=== PATIENT | male | born 1985 | race Caucasian/White ===

== ENCOUNTER 2017-02-01 18:42 | Emergency (ER) | payer OTHER ==
[~2017-02-01] VITALS: Ht 182.9 cm; Wt 77.3 kg
[2017-02-01 18:58] VITALS: BP 148/86; PULSE 95; RESP 20; O2SAT 99
[2017-02-01 19:43] LABS: BASOPHILS % (AUTO) 0.1 % (0-3); EOSINOPHILS % (AUTO) 0 % (0-5); MONOCYTES % (AUTO) 2.4 % (4-12); Mean Corpuscular Hemoglobin 29.8 pg (27.0-35.0); Mean Corpuscular Volume 85.8 fL (81-100); NEUTROPHILS % (AUTO) 92.6 % (40-74); Platelet Count 294 bil/L (150-400)
--- NOTE | 2017-02-01 19:44 | ED.REPORT ---
HPI-Abd Pain M Under 40 Date of Service February 01, 2017 ED Provider: Dr. Les Baumann D.O. A healthy 31 year old male presents to the ED with RLQ abdominal pain onset yesterday. Associated symptoms include nausea, vomiting, and diarrhea. The patient denies fever or other symptoms. He also denies recent known chemical or toxin exposure. Nursing Notes Stated Complaint: VOMITING Chief Complaint: Male Abdominal Pain Nursing Notes Reviewed: Yes Allergies: Coded Allergies: No Known Allergies (Unverified , 02/01/17) General Time Seen by MD: 19:44 Chief Complaint Abdominal pain Hx Obtained From: Patient Arrived By: Walk-in Sudden in Onset?: Yes Onset Occurred: Yesterday Symptom Duration: Since onset Location: : RLQ Quality: Painful Severity: Current: Moderate Severity: Maximum: Moderate Associated with: Reports: Diarrhea, Nausea Pertinent Negative: Relieved by nothing Recent Healthcare: No recent doctor visit Past Medical History Past Medical History None reported Past Surgical History None reported Smoking History Unknown if Ever Smoker Social History Other Social History: Good social support Occupation Works for [email or web address] Ambulatory Status Independent Review of Systems Constitutional: Denies: Fever Respiratory: Denies: Non-productive cough, Shortness of breath GI: Reports: Abdominal pain (RLQ), Diarrhea, Nausea, Vomiting Complete sys rev & neg: except as marked. Physical Exam Initial Vital Signs Vital Signs (First) Date Time Temp Pulse Resp B/P Pulse Ox O2 Delivery O2 Flow Rate FiO2 02/01/17 18:58 37 95 20 148/86 99 Room Air Initial VS: Reviewed Neck: Supple, Full range of motion Skin: Warm, Dry, No cyanosis Neurologic: Alert, Oriented, Nonfocal Psychiatric: Mood/affect normal, Behavior normal, Normal thought content General/Constitutional: Awake, Alert Distress / Hydration: Positive: Distress moderate Appearance / Presentation: Positive: Uncomfortable Respiratory / Chest: Breath sounds NL, Breath sounds = bilat, No respiratory distress Cardiovascular: Regular rhythm, Heart sounds NL Heart Rate / Rhythm: Positive: Tachycardia Abdomen: Atraumatic, Soft Tenderness/Guarding/Rebound: Positive: Tender RLQ... Head / Eyes: Atraumatic, Normocephalic ENT: Airway patent Mouth: Positive: Mucous membranes dry Interpretation & Diagnostics URINE DIPSTICK: 1.020 sp gravity 5 pH Trace Protein Normal Glucose +++Large Ketones 1mg/dl Urobilinogen + Bilirubin Otherwise Negative Lab Results Interpretation Result Diagram: 02/01/17192402/01/171924 Test 02/01/17 19:25 02/01/17 22:55 White Blood Count 13.7th/mm3 (3.8-10.1) Red Blood Count 5.43mil/mm3 (4.40-5.80) Hemoglobin 16.2g/dL (13.8-17.2) Hematocrit 46.6% (41.0-50.0) Mean Corpuscular Volume 85.8fL (81-100) Mean Corpuscular Hemoglobin 29.8pg (27.0-35.0) Mean Corpuscular Hemoglobin Concent 34.8% (32.0-37.0) Red Cell Distribution Width 12.9% (12.3-15.4) Platelet Count 294bil/L (150-400) Neutrophils (%) (Auto) 92.6% (40-74) Lymphocytes (%) (Auto) 4.6% (14-46) Monocytes (%) (Auto) 2.4% (4-12) Eosinophils (%) (Auto) 0% (0-5) Basophils (%) (Auto) 0.1% (0-3) Sodium Level 143mEq/L (134-144) Potassium Level 4.1mEq/L (3.5-5.2) Chloride Level 100mEq/L (97-108) Carbon Dioxide Level 21mmol/L (18-29) Blood Urea Nitrogen 16mg/dL (6-20) Creatinine 0.94mg/dL (0.76-1.27) Estimat Glomerular Filtration Rate 99mL/min (>59) Glucose Level 141mg/dL (60-99) Calcium Level 10.2mg/dL (8.5-10.1) Magnesium Level 2.1mg/dL (1.6-2.6) Total Bilirubin 0.8mg/dL (0.0-1.2) Aspartate Amino Transf (AST/SGOT) 24U/L (0-50) Alanine Aminotransferase (ALT/SGPT) 26U/L (0-44) Alkaline Phosphatase 66U/L (25-150) Total Protein 8.2g/dL (6.4-8.4) Albumin 5.2g/dL (3.4-5.0) Lipase 26U/L (13-60) Urine Color Dark yellow (YELLOW) Urine Appearance Clear (CLEAR,HAZY) Urine pH 6.0 (5.0-8.0) Urine Specific [place] 1.036 (1.003-1.035) Urine Protein 30mg/dL (NEG,TRACE) Urine Glucose (UA) Negativemg/dL (NEGATIVE) Urine Ketones >80mg/dL (NEGATIVE) Urine Occult Blood Negative (NEGATIVE) Urine Nitrite Negative (NEGATIVE) Urine Bilirubin Small (NEGATIVE) Urine Ictotest Positive (Negative) Urine Urobilinogen Normalmg/dL (NORMAL) Urine Leukocyte Esterase Negative (NEGATIVE) Urine RBC 0-2/hpf (0-2) Urine WBC 0-5/hpf (0-5) Urine Epithelial Cells Occasional/hpf (NONE-MOD) Urine Crystals None seen (NONE SEEN) Urine Bacteria None/hpf (NONE-FEW) Urine Hyaline Casts None/lpf (NONE) Urine Granular Casts None seen (NONE SEEN) Urine Waxy Casts None seen (NONE SEEN) Urine Red Blood Cell Casts None seen (NONE SEEN) Urine White Blood Cell Casts None seen (NONE SEEN) Urine Mucus Present (None Seen) Urine Trichomonas None seen (NONE SEEN) Urine Yeast None (NONE SEEN) Urine Culture Reflexed Not indicated CT Abd / Pelvis Interpretation IMPRESSION: Normal abdominal pelvic CT. Transmitted to ED by James Blankenship M.D. at 02/01/2017 - 10:53:56 PM PDT Study type: Abdominal CT IV contrast, Abdom CT oral contrast Interpretation / Wet Read by: Interpret - Radiologist Re-Eval/Medical Decision Re-Evaluation/Progress #1: Time of Eval: 21:25 Patient Status: Condition improved Re-Evaluation/Progress Note: Discussed with patient lab results and plan for CT. Re-Evaluation/Progress #2: Time of Eval: 00:55 Patient Status: Condition improved Re-Evaluation/Progress Note: Discussed with patient CT and lab results, diagnosis, and plan for discharge. Follow-up and return to the ER instructions given. Patient agrees with plan for care and all questions were addressed. Counseled Regarding: Diagnosis, Lab results, Need for follow-up, When/why to return to ED Patient Discharge & Departure Primary Impression: Right lower quadrant abdominal pain Additional Impressions: Vomiting Vomiting type: unspecified Vomiting Intractability: non-intractable Nausea presence: with nausea Qualified Code: R11.2 - Nausea with vomiting, unspecified Diarrhea Diarrhea type: presumed infectious Qualified Code: A09 - Infectious gastroenteritis and colitis, unspecified Dehydration Disposition: Home Discharge Condition All VS Reviewed: Yes Condition: Improved Patient Instructions: Acute Abdominal Pain (ED), Gastroenteritis (ED) Additional Instructions: The CT scan identified a normal appendix. Clear liquid diet for the next [address] as you have received sedating medications. Do not consume alcohol tonight as you have received sedating medications. You may take 1-2 [place] every 6 hours as needed for the abdominal cramping. Do not drive or drink alcohol or consume acetaminophen while taking the [place]. Take 1 Zofran every 8 hours as needed for nausea. I would like you to follow-up with your primary care physician for next week. If the diarrhea persists or if you develop bloody diarrhea you will need to have stool studies performed. Do not hesitate to return if any problems or new worsening symptoms. Referrals: KAI WOODWARD/BRENNAN (PCP) Tanesha Attestation Portions of this note were transcribed by Meera Recinos. I, Dr. Baumann, personally performed the history, physical exam, and medical decision-making; I reviewed and confirmed the accuracy of the information in the transcribed note. Signed by: Tanesha Lieberman, 02/02/2017, 01:30 copies to: KAI WOODWARD/Les Roque DO February 01, 2017 19:44 MEERA RECINOS February 01, 2017 19:58
[2017-02-01 20:08] LABS: Magnesium 2.1 mg/dL (1.6-2.6)
[2017-02-01] MEDS: Ondansetron 2 mg/mL 2 mL Inj IVPUSH PRN ×4 (20:18→22:44)
[2017-02-01] MEDS: 0.9% Sodium Chloride 1,000 ML IV SCH ×3 (20:18→23:03)
[2017-02-01] MEDS: HYDROmorphone 0.5 mg/0.5 mL iSecure Syringe IVPUSH PRN ×3 (20:36→23:18)
[2017-02-01] MEDS ORDERED: Iohexol 300 mg/mL 30 mL Inj PO ONE (21:20)
[2017-02-01 23:00] VITALS: BP 129/86; PULSE 90; RESP 20; O2SAT 99
[2017-02-01 23:26] LABS: APPEARANCE,URINE CLEAR (CLEAR,HAZY); COLOR,URINE DARK YELLOW (YELLOW)
[2017-02-01 23:27] LABS: ICTOTEST,URINE POSITIVE (Negative); OCCULT BLOOD,URINE NEGATIVE (NEGATIVE); UROBILINOGEN,URINE NORMAL (NORMAL)
[2017-02-01] MEDS ORDERED: _HYDROcodone/APAP 5-325 mg Tablet PO PRN (23:55)
[2017-02-01] MEDS ORDERED: _Ondansetron ODT 4 mg Tablet PO PRN (23:55)
[2017-02-02] MEDS: 0.9% Sodium Chloride 1,000 ML IV SCH (00:34)
[2017-02-02 01:50] VITALS: BP 129/86; PULSE 90; RESP 20; O2SAT 99
--- NOTE | 2017-02-02 07:45 | DRSVH ---
PROCEDURE: CT ABDOMEN AND PELVIS WITH CONTRAST ([id number]) INDICATIONS: rlq pain, 13 wbc count, TECHNIQUE: After the administration of oral and intravenous contrast, 5 mm thick sections acquired from the diap hragms to the symphysis. 5 mm thick coronal and sagittal reformats were performed. For radiation do se reduction, the following was used: automated exposure control, adjustment of mA and/or kV accordi ng to patient size. COMPARISON: None. FINDINGS: Image quality: Excellent. ABDOMEN: Lung bases: Lung bases are clear. Heart size is normal. Solid organs: Liver and spleen are normal in size and enhancement. Gallbladder is within normal carmen its. Biliary system is non-dilated. Pancreas enhances normally. No adrenal nodules. Kidneys are n ormal in size and enhancement, without hydronephrosis. Peritoneum and bowel: Small hiatal hernia. Stomach, small bowel, and colon loops are normal in calib er and wall thickness. No free fluid or air. Normal appendix. Nodes and vessels: No retroperitoneal or mesenteric adenopathy. Aorta and inferior vena cava are no rmal in caliber. Miscellaneous: No ventral hernias. PELVIS: Genitourinary: Urinary bladder is decompressed. Visualized ureters are nondistended. Miscellaneous: No inguinal hernias or adenopathy. Bones: No suspicious bony lesions. No vertebral body compression fractures. IMPRESSION: 1. No acute process. 2. Normal appendix. 3. Concordant with preliminary interpretation. Dictated by: Sun Hillman M.D. on 02/02/2017 at 7:42 Approved by: Sun Hillman M.D. on 02/02/2017 at 7:44
[2017-02-03] MEDS ORDERED: HYDR-4003 PO (08:08)
[2017-02-03] MEDS ORDERED: ONDA4TAB9 PO (08:08)
== END 2017-02-02 01:51 | disposition home or self-care (01) ==
LOC: SED 18:42
DX: R10.31 Right lower quadrant pain (principal); R11.2 Nausea with vomiting, unspecified; A09 Infectious gastroenteritis and colitis, unspecified; E86.0 Dehydration
CPT/HCPCS: 36415; 74177; 80053; 81000; 83690; 83735; 85025; 96361; 96374; 96375; 96376; 99285; J1170; J2405; J7030; Q9967

== ENCOUNTER 2017-02-03 07:25 | Emergency (ER) | payer OTHER ==
[~2017-02-03] VITALS: Ht 182.9 cm; Wt 77.7 kg
[2017-02-03 07:29] VITALS: BP 133/84; PULSE 86; RESP 18; O2SAT 100
--- NOTE | 2017-02-03 07:34 | ED.REPORT ---
HPI-Abd Pain M Under 40 Date of Service February 03, 2017 ED Provider: Pankaj Torrez DO 31 year old male presents to the ER complaining of four days of abdominal pain, diarrhea, nausea and vomiting. Patient was seen here in the department three days ago for similar and is requesting a recheck and refill for Zofran. Associated symptoms include diarrhea, though prior to last night he states he had not moved his bowels for three days. Symptoms awakened patient from sleeping last night, at which time he had an episode of watery, mucousy diarrhea. Patient denies hematemesis, and hematochezia. Nursing Notes Stated Complaint: ABDOMINAL PAIN Chief Complaint: Male Abdominal Pain Nursing Notes Reviewed: Yes Allergies: Coded Allergies: No Known Allergies (Unverified , 02/01/17) Scheduled PRN Hydrocodone-Acetaminophen 5-325 mg (Hydrocodone-Acetaminophen 5-325 mg) 1 Each Tablet 1 TABLET PO QID PRN PRN For Pain Ondansetron ODT (Zofran ODT) 4 Mg Tablet 4 MG PO Q4H PRN PRN For Nausea General Time Seen by MD: 07:34 Chief Complaint Abdominal pain, Vomiting moderate Hx Obtained From: Patient Arrived By: Walk-in Sudden in Onset?: No Onset Occurred: 4 days ago Symptom Duration: Since onset Location: : Abdomen lower Quality: Painful Severity: Current: Moderate Severity: Maximum: Moderate Associated with: Reports: Diarrhea, Vomiting, Denies: Hematemesis, Hematochezia Pertinent Negative: Pt denies other symptoms Recent Healthcare: Recent doctor visit Similar Sx Previous: No Past Medical History Past Medical History None reported Past Surgical History None reported Smoking History Unknown if Ever Smoker Social History Other Social History: Good social support Occupation Works for [employer] Ambulatory Status Independent Review of Systems Constitutional: Denies: Chills, Fever GI: Reports: Abdominal pain, Diarrhea, Mucousy stool, Nausea, Vomiting, Denies: Bloody/tarry stool, Hematemesis, Hematochezia Complete sys rev & neg: except as marked. Physical Exam Initial Vital Signs Vital Signs (First) Date Time Temp Pulse Resp B/P Pulse Ox O2 Delivery O2 Flow Rate FiO2 02/03/17 07:29 36.2 86 18 133/84 100 Initial VS: Reviewed Head / Eyes: Atraumatic, Normocephalic Neck: Supple, Non-tender, Full range of motion Extremities: Vascular intact, Neuro intact, No swelling, No tenderness Skin: Warm, Dry, No cyanosis Neurologic: Alert, Oriented, Nonfocal General/Constitutional: Awake, Alert, Well developed, Well nourished Respiratory / Chest: Breath sounds NL, Breath sounds = bilat, No respiratory distress, No rales, No rhonchi, No wheezing, No stridor Cardiovascular: Heart rate NL, Regular rhythm, Heart sounds NL, Peripheral circulation NL Abdomen: Soft, Non-tender, McBurney's non-tender, No guarding, No rebound, No distention Tenderness/Guarding/Rebound: Negative: Tender RLQ... Back: Inspection NL, Non-tender, No CVA tenderness Re-Eval/Medical Decision Med Decision/Clinical Course Reassuring exam, workup was reviewed from a few days ago overall patient's symptoms reportedly are improving. I did suggested outpatient stool testing due to the mucousy nature of the stool. And Zofran and Vicodin prescribed. Return and follow-up precautions given. Re-Evaluation/Progress : Time of Eval: 07:43 Re-Evaluation/Progress Note: Discussed physical examination findings and plan to discharge. Patient is amenable to the plan. Return precautions given. All other questions addressed. Counseled Regarding: Diagnosis, Need for follow-up, When/why to return to ED Patient Discharge & Departure Primary Impression: Diarrhea Disposition: Home Discharge Condition All VS Reviewed: Yes Condition: Stable Additional Instructions: Continue Zofran and Vicodin. Return a stool specimen as soon as possible to be tested for the cause of your mucous-like diarrhea. Return to the ER if worse. Follow-up with the primary care doctor as well. Referrals: KAI WOODWARD/BRENNAN (PCP) Tanesha Attestation Portions of this note were transcribed by Cy Ortiz. I, Dr. Torrez, personally performed the history, physical exam and medical decision-making; I reviewed and confirmed the accuracy of the information in the transcribed note. Signed by: Tanesha Siddiqui, 02/03/2017 and 08:12 copies to: RUBY WOODWARD Timothy S DO February 03, 2017 07:34 CY ORTIZ February 03, 2017 07:41
[2017-02-03] MEDS ORDERED: ONDA4TAB9 PO (08:08)
[2017-02-03] MEDS ORDERED: HYDR-4003 PO (08:08)
== END 2017-02-03 08:34 | disposition home or self-care (01) ==
LOC: SED 07:25
DX: R19.7 Diarrhea, unspecified (principal)

== ENCOUNTER 2017-02-09 16:23 | Emergency (ER) | payer OTHER ==
[~2017-02-09] VITALS: Ht 182.9 cm; Wt 77.3 kg
[~2017-02-09 16:23] MED LIST: HYDR-4003 PO; ONDA4TAB9 PO
[2017-02-09 16:33] VITALS: BP 131/94; PULSE 127; RESP 20; O2SAT 100
[2017-02-09 17:19] LABS: BASOPHILS % (AUTO) 0.3 % (0-3); EOSINOPHILS % (AUTO) 0.1 % (0-5); MONOCYTES % (AUTO) 7.3 % (4-12); Mean Corpuscular Hemoglobin 29.5 pg (27.0-35.0); Mean Corpuscular Volume 84.6 fL (81-100); NEUTROPHILS % (AUTO) 82.4 % (40-74); Platelet Count 354 bil/L (150-400)
[2017-02-09] MEDS ORDERED: 0.9% Sodium Chloride 1,000 ML IV ONE ×3 (17:20→20:30)
[2017-02-09] MEDS: Ondansetron 2 mg/mL 2 mL Inj IVPUSH PRN ×3 (17:29→20:01)
--- NOTE | 2017-02-09 17:36 | ED.REPORT ---
HPI-Abd Pain M Under 40 Date of Service February 09, 2017 ED Provider: Surekha Younger MD The patient is a 31 year old male who returns to the emergency department for the 3rd time in the last 10 days. He was initially seen on February 01 for RLQ abdominal pain. He had a normal abdominal CT and was discharged home on Vicodin and Zofran. The patient was seen again on February 03 for continued abdominal pain, nausea, vomiting, and diarrhea. He was discharged home and directed to bring a stool sample to the lab. He returns today complaining of continued lower abdominal pain, epigastric pain, nausea, vomiting, and diarrhea. His pain has been constant since onset. He also reports dull pain in his testicles, bloody stools, chills, and decreased appetite. He denies dysuria, hematuria, increased urination frequency/urgency, fever, penile discharge or penile pain. The patient is sexually active with 1 partner. He reports history of "stomach issues" since he was a kid. He has been diagnosed with cyclical vomiting syndrome. He does not take any medication regularly. He drinks alcohol and smokes tobacco occasionally. He denies illicit drug use. Nursing Notes Stated Complaint: STOMACH PAIN,VOMITING Chief Complaint: Male Abdominal Pain Nursing Notes Reviewed: Yes Allergies: Coded Allergies: No Known Allergies (Unverified , 02/01/17) Scheduled Doxycycline Monohyd (Doxycycline Monohyd) 100 Mg Tablet 100 MG PO BID Scheduled PRN Hydrocodone-Acetaminophen 5-325 mg (Hydrocodone-Acetaminophen 5-325 mg) 1 Each Tablet 1 TABLET PO QID PRN PRN For Pain Hydrocodone-Acetaminophen 5-325 mg (Hydrocodone-Acetaminophen 5-325 mg) 1 Each Tablet 1 TABLET PO Q6H PRN PRN For Pain Ondansetron ODT (Zofran ODT) 4 Mg Tablet 4 MG PO Q4H PRN PRN For Nausea Ondansetron ODT (Ondansetron ODT) 8 Mg Tab.rapdis 8 MG PO Q8H PRN PRN For Nausea General Time Seen by MD: 17:18 Chief Complaint Abdominal pain Hx Obtained From: Patient Arrived By: Walk-in Sudden in Onset?: No Onset Occurred: More than a week ago... Symptom Duration: Since onset Progression since Onset: Constant, Gradually worsening Location: : Abdomen lower: Epigastric Quality: Painful Severity: Current: Moderate Severity: Maximum: Severe Recent Healthcare: No recent hospitalization, Recent doctor visit, Prior workup Similar Sx Previous: Yes Past Medical History Past Medical History Cyclical vomiting Past Surgical History None reported Family History Noncontributory Smoking History Current Some Day Smoker Social History Alcohol Use: "Social" Drug Use: Denies drug use Other Social History: Good social support, Lives with children, Local resident Occupation Works for [employer] Ambulatory Status Independent Review of Systems Review of Systems Note: +decreased appetite Constitutional: Reports: Chills, Denies: Fever Respiratory: Denies: Non-productive cough, Shortness of breath Cardiovascular: Denies: Chest pain GI: Reports: Abdominal pain, Diarrhea, Hematochezia, Nausea, Vomiting Male: Reports Testicular pain, Denies Dysuria, Denies Hematuria, Denies Penile discharge, Denies Penile lesion, Denies Testicular swelling, Denies Urinary frequency, Denies Urinary urgency Complete sys rev & neg: except as marked. Physical Exam Initial Vital Signs Vital Signs (First) Date Time Temp Pulse Resp B/P Pulse Ox O2 Delivery O2 Flow Rate FiO2 02/09/17 16:33 36.6 127 20 131/94 100 02/09/17 21:19 Room Air Initial VS: Reviewed, Vital signs abnormal Head / Eyes: Atraumatic, Normocephalic, PERRL Neck: Supple, Non-tender, Full range of motion Extremities: Vascular intact, Neuro intact, No swelling, No tenderness Skin: Warm, Dry, No cyanosis Neurologic: Alert, Oriented, Nonfocal Psychiatric: Mood/affect normal, Behavior normal, Normal thought content Cardiovascular: Regular rhythm, Heart sounds NL, No gallop, No murmurs, No rubs Heart Rate / Rhythm: Positive: Tachycardia Abdomen: Soft Mild lower abdominal discomfort. Groin normal. Back: Inspection NL, Non-tender, No CVA tenderness ENT: Airway patent Mouth: Positive: Mucous membranes dry Male Genitourinary: Atraumatic, Inspection NL, Penis NL, No penile discharge, Testes NL, No mass, No hernia, No lesions or rash Rectum / Perineum: Blood - occult heme - Enlarged prostate that was boggy and painful. Interpretation & Diagnostics Lab Results Interpretation Result Diagram: 02/09/17 1700 02/09/17 1725 Test 02/09/17 17:00 02/09/17 17:25 02/09/17 20:31 White Blood Count 13.9th/mm3 (3.8-10.1) Red Blood Count 6.10mil/mm3 (4.40-5.80) Hemoglobin 18.0g/dL (13.8-17.2) Hematocrit 51.6% (41.0-50.0) Mean Corpuscular Volume 84.6fL (81-100) Mean Corpuscular Hemoglobin 29.5pg (27.0-35.0) Mean Corpuscular Hemoglobin Concent 34.9% (32.0-37.0) Red Cell Distribution Width 12.9% (12.3-15.4) Platelet Count 354bil/L (150-400) Neutrophils (%) (Auto) 82.4% (40-74) Lymphocytes (%) (Auto) 9.8% (14-46) Monocytes (%) (Auto) 7.3% (4-12) Eosinophils (%) (Auto) 0.1% (0-5) Basophils (%) (Auto) 0.3% (0-3) Hold Purple Top Tube Received (Received) Hold Blue Top Tube Received (Received) Sodium Level 140mEq/L (134-144) Potassium Level 4.7mEq/L (3.5-5.2) Chloride Level 97mEq/L (97-108) Carbon Dioxide Level 21mmol/L (18-29) Blood Urea Nitrogen 18mg/dL (6-20) Creatinine 1.32mg/dL (0.76-1.27) Estimat Glomerular Filtration Rate 67mL/min (>59) Glucose Level 141mg/dL (60-99) Calcium Level 11.1mg/dL (8.5-10.1) Magnesium Level 2.4mg/dL (1.6-2.6) Total Bilirubin 0.7mg/dL (0.0-1.2) Aspartate Amino Transf (AST/SGOT) 19U/L (0-50) Alanine Aminotransferase (ALT/SGPT) 17U/L (0-44) Alkaline Phosphatase 75U/L (25-150) Total Protein 9.2g/dL (6.4-8.4) Albumin 5.8g/dL (3.4-5.0) Lipase 29U/L (13-60) Hold Red Top Tube Received (Received) Hold Man Top Tube Received (Received) Urine Color Yellow (YELLOW) Urine Appearance Clear (CLEAR,HAZY) Urine pH 5.5 (5.0-8.0) Urine Specific [employer] 1.030 (1.003-1.035) Urine Protein 30mg/dL (NEG,TRACE) Urine Glucose (UA) Negativemg/dL (NEGATIVE) Urine Ketones 15mg/dL (NEGATIVE) Urine Occult Blood Negative (NEGATIVE) Urine Nitrite Negative (NEGATIVE) Urine Bilirubin Negative (NEGATIVE) Urine Ictotest Negative (Negative) Urine Urobilinogen 1.0mg/dL (NORMAL) Urine Leukocyte Esterase Negative (NEGATIVE) Urine RBC 0-2/hpf (0-2) Urine WBC 0-5/hpf (0-5) Urine Epithelial Cells None/hpf (NONE-MOD) Urine Crystals None seen (NONE SEEN) Urine Bacteria Few/hpf (NONE-FEW) Urine Hyaline Casts >20/lpf (NONE) Urine Granular Casts None seen (NONE SEEN) Urine Waxy Casts None seen (NONE SEEN) Urine Red Blood Cell Casts None seen (NONE SEEN) Urine White Blood Cell Casts None seen (NONE SEEN) Urine Mucus Present (None Seen) Urine Trichomonas None seen (NONE SEEN) Urine Yeast None (NONE SEEN) Urinalysis Comment None Urine Culture Reflexed Not indicated Re-Eval/Medical Decision Med Decision/Clinical Course This patient's third visit for lower abdominal pain and vomiting. He also had pain radiating to his testicles and has an enlarged prostate which are consistent with prostatitis. The patient was given 4 L of fluid as well as IV antibiotics and oral antibiotics. He is feeling improved upon discharge. He had an oral challenge did not have any emesis. The patient does not meet sepsis criteria and given he had improvement in all of his symptoms he is a good candidate for outpatient treatment. Source of Hx: Old records Re-Evaluation/Progress #1: Time of Eval: 21:25 Re-Evaluation/Progress Note: The patient is feeling better. He tolerated PO. Re-Evaluation/Progress #2: Time of Eval: 21:51 Re-Evaluation/Progress Note: Rechecked the patient. He is feeling better and able to tolerate PO. Discussed results, diagnosis, and plan for discharge. All questions were addressed. Counseled Regarding: Diagnosis, Lab results, Need for follow-up, When/why to return to ED Patient Discharge & Departure Primary Impression: Prostatitis Prostatitis type: acute Qualified Code: N41.0 - Acute prostatitis Additional Impression: Severe dehydration Disposition: Home Discharge Condition All VS Reviewed: Yes Condition: Stable Patient Instructions: Dehydration (ED), Prostatitis (GEN) Additional Instructions: Thank you for entrusting us with your care today. Your exam findings are consistent with prostatitis. You will need to take an oral antibiotics for this. Your labs show evidence of a dehydration but were otherwise unremarkable. Use the Zofran as needed for your nausea and vomiting. It is important to stay hydrated. Drink fluids as tolerated. When you feel like eating you should start with bland foods, like: bananas, applesauce, rice, and toast. Followup with a regular doctor in 1 week for repeat kidney function tests. Return here for any new or worsening symptoms. Referrals: KAI WOODWARD/BRENNAN (PCP) Tanesha Attestation Portions of this note were transcribed by Noelle Garcia. I, Dr. Younger personally performed the history, physical exam and medical decision-making; I reviewed and confirmed the accuracy of the information in the transcribed note. Signed by: Tanesha Estrada, 02/09/2017 at 2230. copies to: KAI WOODWARD/Surekha Kemp MD February 09, 2017 17:36 Noelle Garcia February 09, 2017 17:41
[2017-02-09] MEDS ORDERED: cefTRIAXone Inj 1,000 MG in Dextrose 5% Minibag Plus 50 ML IV ONE (17:40)
[2017-02-09] MEDS: HYDROmorphone 0.5 mg/0.5 mL iSecure Syringe IVPUSH PRN ×3 (17:55→20:59)
[2017-02-09 18:26] LABS: Magnesium 2.4 mg/dL (1.6-2.6)
[2017-02-09 21:01] LABS: APPEARANCE,URINE CLEAR (CLEAR,HAZY); COLOR,URINE YELLOW (YELLOW)
[2017-02-09 21:02] LABS: OCCULT BLOOD,URINE NEGATIVE (NEGATIVE); PH,URINE 5.5 (5.0-8.0)
[2017-02-09 21:04] LABS: ICTOTEST,URINE NEGATIVE (Negative)
[2017-02-09 21:19] VITALS: BP 126/64; PULSE 72; RESP 16; O2SAT 98
[2017-02-09] MEDS ORDERED: Dextrose 5% Lactated Ringer's 1,000 ML IV ONE (22:05)
[2017-02-09] MEDS ORDERED: DOXY-232 PO (22:48)
[2017-02-09] MEDS ORDERED: HYDR-4003 PO (22:48)
[2017-02-09] MEDS ORDERED: ONDA8TAB10 PO (22:48)
[2017-02-09] MEDS ORDERED: HYDROcodone-APAP 5-325 mg Tablet PO ONE (23:00)
[2017-02-09 23:09] VITALS: BP 135/68; PULSE 95; RESP 16; O2SAT 98
== END 2017-02-09 23:12 | disposition home or self-care (01) ==
LOC: SED 16:23
DX: N41.0 Acute prostatitis (principal); E86.0 Dehydration; F17.200 Nicotine dependence, unspecified, uncomplicated
CPT/HCPCS: 36415; 80053; 81000; 81002; 83690; 83735; 85025; 96361; 96365; 96375; 96376; 99285; J0696; J1170; J2405; J7030